=== PATIENT | male | born 1990 | race Caucasian/White ===

== ENCOUNTER 2020-02-08 11:05 | Outpatient (NON) | payer OTHER, SELFPAY ==
[2020-02-10 01:50] LABS: SARS-CoV-2 RNA PCR Negative
== END 2020-02-08 11:06 ==
LOC: ANHCOVIDDT 11:08
PROVIDERS: PCP Internal Medicine; Visit Provider Internal Medicine
DX: Z20.828 Contact with and (suspected) exposure to other viral communicable diseases (principal); J06.9 Acute upper respiratory infection, unspecified
CPT/HCPCS: 87635; C9803; U0003

== ENCOUNTER → 2020-04-14 10:28 | Outpatient (CLI) | payer OTHER, SELFPAY ==
--- NOTE | ~2020-04-14 | MR_ITS ---
EXAMINATION: MR lumbar spine wo con DATE: 04/14/2020 11:01 INDICATION: Low back pain. Right-sided sciatica. TECHNIQUE: Magnetic resonance imaging (MRI) of the lumbar spine was performed without intravenous con trast. Sequences included sagittal T2-weighted FSE, sagittal T2-weighted FS FSE, sagittal T1-weighted FSE, and axial T2-weighted FSE. COMPARISON: None FINDINGS: Bone alignment is normal. Vertebral body heights are normal. There is mildly decreased disc height at L4-L5 and moderately decreased disc height at L5-S1. The distal spinal cord signal intensi ty is normal. The conus medullaris is at L1. 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 The following disc levels are specifically discussed: L1-L2: The disc does not extend beyond the endplate margin. There is mild left facet joint osteoarthr itis. There is no neural foraminal stenosis. There is no central canal stenosis. L2-L3: The disc does not extend beyond the endplate margin. There is mild right facet joint osteoarth ritis. There is no neural foraminal stenosis. There is no central canal stenosis. L3-L4: The disc does not extend beyond the endplate margin. There is mild right facet joint osteoarth ritis. There is no neural foraminal stenosis. There is no central canal stenosis. L4-L5: The disc is bulging with superimposed central extrusion. There is mild bilateral facet joint o steoarthritis. There is no neural foraminal stenosis. There is mild central canal stenosis. L5-S1: The disc is bulging with superimposed right central extrusion with mass effect on right S1 ner ve root in right lateral recess. There is mild bilateral facet joint osteoarthritis. There is mild bi lateral neural foraminal stenosis. There is mild central canal stenosis. IMPRESSION: 1. Moderate lower lumbar spondylosis. Of note, an extrusion at L5-S1 exerts mass effect on right S1 n erve root. Reviewed, dictated and finalized at location B. LANE TUBE BUILDER IMPRESSION: 1. Moderate lower lumbar spondylosis. Of note, an extrusion at L5-S1 exerts mas s effect on right S1 nerve root.
== END ==
PROVIDERS: PCP Internal Medicine; Visit Provider Internal Medicine
DX: M54.41 Lumbago with sciatica, right side (principal); M47.896 Other spondylosis, lumbar region; M51.27 Other intervertebral disc displacement, lumbosacral region
CPT/HCPCS: 72148

== ENCOUNTER 2020-06-11 08:00 | Outpatient (RCR) | payer OTHER, SELFPAY ==
--- NOTE | 2020-04-11 12:54 | PTOPEVAL ---
INITIAL PHYSICAL THERAPY EVALUATION and PLAN OF CARE Thank you for referring Krishna Guzman to [facility].? Krishna is scheduled to be seen for physical therapy? 2x/week for 4 weeks. Please review, sign, date and return this plan of care JÚNIOR. I agree with and certify that the following plan of care is medically necessary. Referring Physician Date Admitting Provider: Attending Provider: Rikki Ruiz, Referring Provider: *PT Outpatient Evaluation Start: 04/11/20 08:05 Freq: Status: Active Protocol: Document 04/11/20 08:06 FLORENTINO (Rec: 04/11/20 09:08 FLORENTINO [id number]) Therapy Assessment Status Assessment Status Assessment Status Evaluation Outpatient Past Medical History Past Medical History Source of Past Medical History Patient Musculoskeletal History Hx Orthopedic Surgery Yes: L knee meniscus repair, then revision Nov 2019 Evaluation Information Problem Diagnosis low back pain Onset January 2020 Subjective Information Lifting boxes repetitively at Query Text:As Reported By Patient/ work - watching how much Family weight he was putting on L leg due to recent L knee surgery - felt discomfort with R lower back - increased pain occurred Increased discomfort R sided low back remains - pain will shoot down R posterior leg to knee and on occasions will go all the way down to the R foot. Sleeping - taking muscle relaxers to sleep or either drinking alcohol to help fall asleep. Does some stretching in bed - then another set when he gets up Worse as the day goes on especially if at work, if too much pain will stay home. Difficulty with walking dog - larger dog will pull. 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
--- NOTE | 2020-05-07 15:23 | PTOPEVAL ---
PHYSICAL THERAPY RE-EVALUATION and UPDATED PLAN OF CARE Thank you for referring Krishna Guzman to [facility].? Krishna has made gains in PT, but there has not been full resolution of R radicular LE pain/symptoms. Krishna is scheduled to be seen for physical therapy? 2x/week for 4 weeks. Please review, sign, date and return this plan of care JÚNIOR. I agree with and certify that the following plan of care is medically necessary. Referring Physician Date Admitting Provider: Attending Provider: Rikki Ruiz, MD Referring Provider: Therapy Assessment Status Assessment Status Assessment Status Re-evaluation Evaluation Information Problem Diagnosis low back pain Subjective Information Krishna reports increase in Query Text:As Reported By Patient/ discomfort last few days - Family increase in flexion activities past few days at work. Didn' t sleep well past few days. Krishna reports that he does gain relief with PT - especially the mobilization to back structures - always feels better afterwards. Continues to perform his HEP. Pain Assessment Self Report Pain Assessment Lower Back Reported Pain Level 5 Pain Description Sharp Radicular Pain Location to R distal buttock region Lowest Pain Intensity 3 Greatest Pain Intensity 8 Cervical and Lumbar ROM Lumbar ROM Lumbar Flexion (0-90) 40 Query Text:Active in Degrees Lumbar Extension (0-40) 10 Query Text:Active in Degrees Lumbar Lateral Flexion Right (0-40) 20 Query Text:Active in Degrees Lumbar Lateral Flexion Left (0-40) 20 Query Text:Active in Degrees Lumbar Comments discomfort limited trunk flexion and extension Palpation Assessment Palpation Palpation Tenderness with lumbar paraspinal muscles today - bilat L3-5 Tenderness with P -A mob at sacral base, L5 Decrease mobility at L5, improved L4,3 Able to promote increased sacral and L5 mobility with manual therapy - decreased discomfort afterwards. PT Clinical Summary Clinical Summary Protocol: PTEVCODE PT Clinical Summary Modified Oswestry LBP Questionnaire 62% Krishna has done well in PT - R radicular symptoms have centrali
--- NOTE | 2020-05-12 08:37 | PCPTNOTE ---
Patient did not show up for scheduled appointment this date. Phone call made - message left. Let him know when his next appointment is 05/16/20 at 8:00.
--- NOTE | 2020-06-02 08:10 | PCPTNOTE ---
Patient called & cancelled scheduled appointment this date due to car problems.
--- NOTE | 2020-06-09 08:42 | PCPTNOTE ---
Patient did not show up for scheduled appointment this date. Phone call made - Krishna messed up his days - he is being rescheduled 06/11/20 for re-eval.
--- NOTE | 2020-06-11 14:12 | PTOPEVAL ---
PHYSICAL THERAPY DISCHARGE SUMMARY Thank you for referring Krishna Guzman to [facility].? Krishna has been seen x 15 visits. He has made progress towards goals set. Generally discomfort is in R lower back and buttock region, but he can still provoke radicular symptoms down to R heel. He is independent and compliant with HEP, which he is to continue with. He is at end point with PT at this time. I agree with Krishna's discharge from PT. Referring Physician Date Admitting Provider: Attending Provider: Rikki Ruiz, MD Referring Provider: Therapy Assessment Status Assessment Status Assessment Status Discharge Evaluation Information Problem Diagnosis low back pain Onset January 2020 Subjective Information Krishna reports that he can Query Text:As Reported By Patient/ still produce R leg pain Family radiating to heel with full press up at times. Generally pain is in 3-5/10 levels and discomfort felt in R lower back and buttock level. Getting on ball 2-3 times/day for exercises - helps decrease discomfort. Mid back discomfort is improved - but still present more as the day goes on. Pain Assessment Self Report Pain Assessment Lower Back Reported Pain Level 4 Pain Description Dull,Sharp Lowest Pain Intensity 1 Greatest Pain Intensity 9 Cervical and Lumbar ROM Lumbar ROM Lumbar Flexion (0-90) 35 Query Text:Active in Degrees Lumbar Extension (0-40) 10 Query Text:Active in Degrees Lumbar Lateral Flexion Right (0-40) 15 Query Text:Active in Degrees Lumbar Lateral Flexion Left (0-40) 10 Query Text:Active in Degrees Lumbar Comments discomfort with trunk motion in standing after mobilization to back - full press up motion in prone Muscle Length Testing Muscle Length Testing Left Hamstring Length -30 Query Text:(90 - 90 Position) Right Hamstring Length -22 Query Text:(90 - 90 Position) Palpation Assessment Palpation Palpation P-A mob - tenderness at sacral base and L DEQUAN, decreased mobility at L5 with tenderness , normal mobility at L4,3 - decreased discomfort Symmetrical thoracic alignment and mobility now present PT Clinical Summary Clinical Summary Protocol: PTEVCODE PT Cli
== END 2020-06-24 10:53 | disposition home or self-care (01) ==
LOC: ANHHIPT 08:00
PROVIDERS: PCP Internal Medicine; Visit Provider Internal Medicine
DX: M54.5 Low back pain (principal)
CPT/HCPCS: 97110; 97140; 97162

== ENCOUNTER 2022-03-30 08:47 | Outpatient (CLI) | payer OTHER, SELFPAY ==
--- NOTE | 2022-03-30 | ECG_ITS ---
Measurements Intervals [place] Rate: 68 P: 74 GA: 162 QRS: 81 QRSD: 92 T: 74 QT: 399 QTc: 427 Interpretive Statements SINUS RHYTHM WITH MARKED SINUS ARRHYTHMIA MINIMAL Q WAVES- INFERIOR LEADS BORDERLINE ECG NO PREVIOUS ECG AVAILABLE FOR COMPARISON Electronically Signed On 03-30-2022 9:39:01 LEAD GENERATOR by Remy Barry D.O.
--- NOTE | ~2022-03-30 | XR_ITS ---
Clinical Indication: Radiculopathy PA and lateral views of the chest: Comparison: None Findings: The lungs are clear, without evidence of focal consolidation or pleural effusion. Cardiome diastinal silhouette is within normal limits. Bones and soft tissues are unremarkable. Impression: Normal chest. Reviewed, dictated and finalized at [facility]. NT CARE MANAGER Impression: Normal chest.
[2022-03-30 09:17] LABS: Basophils Percent Auto 0.7 % (0.2-1.2); Eosinophils Absolute Auto 0.2 K/mm3 (0-0.3); Eosinophils Percent Auto 2.8 % (0-4.4); Hematocrit 41.8 % (42.0-52.0); Hemoglobin 14.8 g/dL (14.0-18.0); Immature Granulocyte Absolute 0.01 K/mm3 (0.00-0.031); Immature Granulocyte Percent A 0.2 % (0-0.5); Lymphocytes Absolute Auto 2.04 K/mm3 (0.9-3.2); Lymphocytes Percent Auto 33.3 % (18.3-44.2); Mean Corpuscular HGB Conc 35.4 g/dl (32-36); Mean Corpuscular Hemoglobin 30.8 pg (26-34); Mean Corpuscular Volume 87.1 fl (80-100); Mean Platelet Volume 9.4 fl (7.4-10.4); Monocytes Absolute Auto 0.7 K/mm3 (0.1-0.6); Monocytes Percent Auto 11.4 % (2.6-8.5); Neutrophils Absolute Auto 3.2 K/mm3 (1.3-6.7); Neutrophils Percent Auto 51.6 % (45.5-73.1); Platelet Count Result 200 k/mm3 (150-375); White Blood Count 6.1 K/mm3 (4.5-10.0)
[2022-03-30 09:33] LABS: Alanine Aminotransferase 44 U/L (6-50); Albumin Level 4.4 g/dL (3.5-5.1); Alkaline Phosphatase 53 U/L (38-126); Anion Gap 6 mmol/L (8-16); Aspartate Amino Transferase 29 U/L (17-59); Bilirubin,Total 1.3 mg/dL (0.2-1.3); Blood Urea Nitrogen 14 mg/dL (9-20); Carbon Dioxide 32 mmol/L (22-30); Chloride 103 mmol/L (98-107); Estimated Glomerular Filt Rate > 60; Glucose 125 mg/dL (65-110); Potassium 3.8 mmol/L (3.4-5.0); Sodium 141 mmol/L (137-145)
[2022-03-30 09:37] LABS: Prealbumin 34.7 mg/dL (17.6-36.0)
[2022-03-30 09:44] LABS: INR 1.1; Prothrombin Time 13.6 Seconds (11.1-14.7)
[2022-03-30 10:12] LABS: HIV 1/2 Ab P24 Ag Result Negative (Negative)
[2022-03-30 10:20] LABS: Vitamin D 25 Hydroxy 22.7 ng/mL
[2022-03-30 10:33] LABS: Hepatitis B Surface Antigen Negative (Negative)
[2022-03-30 10:39] LABS: HAV RESULT Negative (Negative); Hepatitis B Core IgM Result Negative (Negative)
[2022-03-30 10:50] LABS: Hepatitis C Virus Antibody Negative (Negative)
[2022-04-02 12:49] LABS: Testosterone Total 398 ng/dL (250-1100)
== END 2022-03-30 08:48 | disposition home or self-care (01) ==
PROVIDERS: PCP Internal Medicine; Visit Provider Orthopaedic Surgery
DX: M54.16 Radiculopathy, lumbar region (principal); R94.31 Abnormal electrocardiogram [ECG] [EKG]
CPT/HCPCS: 36415; 71046; 80053; 80074; 82306; 84134; 84403; 84443; 85025; 85610; 85730; 86703; 93005; G0432

== ENCOUNTER 2022-03-31 11:49 | Outpatient (CLI) | payer OTHER, SELFPAY ==
--- NOTE | 2022-03-31 | ECG_ITS ---
Measurements Intervals [place] Rate: 61 P: 66 CT: 150 QRS: 76 QRSD: 97 T: 68 QT: 393 QTc: 398 Interpretive Statements SINUS RHYTHM WITH MARKED SINUS ARRHYTHMIA MINIMAL Q WAVES- INFERIOR LEADS BORDERLINE ECG COMPARED TO ECG 03/30/2022 09:23:45 NO SIGNIFICANT CHANGES Electronically Signed On 03-31-2022 12:39:37 HYDROELECTRIC SYSTEMS TECHNICIAN by Remy Barry D.O.
== END 2022-03-31 11:50 | disposition home or self-care (01) ==
PROVIDERS: PCP Internal Medicine; Visit Provider Orthopaedic Surgery
DX: Z01.810 Encounter for preprocedural cardiovascular examination (principal)
CPT/HCPCS: 93005

== ENCOUNTER 2022-05-12 14:09 | Outpatient (CLI) | payer OTHER, SELFPAY ==
[2022-05-12 14:30] LABS: Basophils Percent Auto 0.5 % (0.2-1.2); Eosinophils Absolute Auto 0.1 K/mm3 (0-0.3); Hematocrit 45.5 % (42.0-52.0); Hemoglobin 15.9 g/dL (14.0-18.0); Immature Granulocyte Absolute 0.01 K/mm3 (0.00-0.031); Immature Granulocyte Percent A 0.2 % (0-0.5); Lymphocytes Absolute Auto 1.57 K/mm3 (0.9-3.2); Lymphocytes Percent Auto 24.7 % (18.3-44.2); Mean Corpuscular HGB Conc 34.9 g/dl (32-36); Mean Corpuscular Hemoglobin 30.8 pg (26-34); Mean Platelet Volume 9.5 fl (7.4-10.4); Monocytes Absolute Auto 0.5 K/mm3 (0.1-0.6); Monocytes Percent Auto 7.2 % (2.6-8.5); Neutrophils Absolute Auto 4.2 K/mm3 (1.3-6.7); Neutrophils Percent Auto 65.4 % (45.5-73.1); Platelet Count Result 208 k/mm3 (150-375); Red Blood Count 5.17 M/mm3 (4.6-6.20); White Blood Count 6.4 K/mm3 (4.5-10.0)
[2022-05-12 14:39] LABS: Alanine Aminotransferase 44 U/L (6-50); Albumin Level 4.8 g/dL (3.5-5.1); Alkaline Phosphatase 51 U/L (38-126); Anion Gap 8 mmol/L (8-16); Aspartate Amino Transferase 29 U/L (17-59); Bilirubin,Total 1.4 mg/dL (0.2-1.3); Blood Urea Nitrogen 16 mg/dL (9-20); Calcium 9.4 mg/dL (8.4-10.2); Carbon Dioxide 30 mmol/L (22-30); Chloride 102 mmol/L (98-107); Estimated Glomerular Filt Rate > 60; Glucose 134 mg/dL (65-110); Potassium 3.9 mmol/L (3.4-5.0); Sodium 140 mmol/L (137-145)
[2022-05-12 14:45] LABS: INR 1.1; Prothrombin Time 13.7 Seconds (11.1-14.7)
== END 2022-05-12 14:10 | disposition home or self-care (01) ==
PROVIDERS: PCP Nurse Practitioner Family; Visit Provider Orthopaedic Surgery
DX: M54.16 Radiculopathy, lumbar region (principal)
CPT/HCPCS: 36415; 80053; 85025; 85610; 85730

== ENCOUNTER 2023-08-29 08:24 | Day surgery (SDC) | payer OTHER, SELFPAY ==
[2023-08-10 06:06] VITALS: BMI 25.8
[2023-08-11 11:24] VITALS: BMI 25.8
--- NOTE | 2023-08-23 10:09 | P.HP_ITS ---
History of Present Illness History of Present Illness Consent: Risks, benefits, and alternatives have been discussed and questions answered. Patient agrees to proceed with procedure. Chief complaint: Change in bowel habit Narrative: Krishna Guzman is a 33 year old male with a change of bowel habits. He has several stools per day which tend to be soft or loose. He often feels as though he is not empty Review of Systems Review of Systems: All systems reviewed & are unremarkable except as noted in HPI and below PMFSH Past Medical History Medical History IBS (irritable bowel syndrome) Surgical History Surgical History H/O knee surgery left knee, 2019 and 2019 S/P spinal surgery Family History Family History Father Hypertension Grandparent Diabetes mellitus Hypertension Heart disease Social History Social History Smoking status: Never smoker Alcohol intake: current Alcohol use details: wine, beer, spirits; every 2 weeks Substance use: current Substance use type: marijuana Living arrangements: with roommate(s) Occupation/Education: occupation Additional occupation/education comments: 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 Gender identity (if verbalized by the patient): Male Spiritual care concerns: No Agree to blood products: Yes Meds Home Medications and Allergies Home Medications Medication Instructions Recorded Confirmed Type cyclobenzaprine 10 mg tablet 10 mg PO TID PRN Pain, Moderate 09/29/22 08/29/23 History pregabalin 75 mg capsule (Lyrica) 150 mg PO DAILY 06/22/23 08/29/23 History Allergies Allergy/AdvReac Type Severity Reaction Status Date / Time No Known Allergies Allergy Verified 08/29/23 09:55 Exam Resp: Auscultation: clear to auscultation bilaterally Cardio: Rate: regular rate Rhythm: regular rhythm GI: GI Palp: Yes Soft to palpation and No Tenderness to palpation present (GI) Assessment and Plan Assessment and plan (1) Change in bowel habits: Code(s): R19.4 - Change in bowel habit Status: Acute Assessment and Plan: Colonoscopy with possible biopsy or polypectomy or cautery or injection of substances.
[2023-08-29 09:57] VITALS: BP 112/90; PULSE 76; RESP 18; TEMP 37.4; O2SAT 100
[2023-08-29] MEDS: LACTATED RINGERS 1,000 ML 150 ML IV CONT (10:00)
--- NOTE | 2023-08-29 10:37 | WPDANESEPPF ---
Anes - Initial Pre Proc Eval Procedure: Operation Date: 08/29/23 11:00 Proposed Procedures p Diagnostic Colonoscopy - Marcus Orellana MD Date/Time: 08/29/23 10:37 Surgeon: Marcus Orellana MD Pre Op Diagnosis: Change in bowel habit Patient Data Age: 33 Gender: M Height: 1.8 m Weight: 82.4 kg Last Vital Signs Temp 37.4 C 08/29/23 09:57 Pulse 76 08/29/23 09:57 Resp 18 08/29/23 09:57 BP 112/90 08/29/23 09:57 Pulse Ox 100 08/29/23 09:57 O2 Del Method Room Air 08/29/23 09:57 Allergies Allergy/AdvReac Type Severity Reaction Status Date / Time No Known Allergies Allergy Verified 08/29/23 09:55 Home Medications Medication Instructions Recorded Confirmed Type cyclobenzaprine 10 mg tablet 10 mg PO TID PRN Pain, Moderate 09/29/22 08/29/23 History pregabalin 75 mg capsule (Lyrica) 150 mg PO DAILY 06/22/23 08/29/23 History Patient hx anesthesia problems: none Family hx anesthesia problems: none Results Review: All pre-operative results and documents have been reviewed as part of the pre-operative evaluation. [facility] Past Medical History Medical History IBS (irritable bowel syndrome) Surgical History Surgical History H/O knee surgery left knee, 2019 and 2019 S/P spinal surgery Family History Family History Father Hypertension Grandparent Diabetes mellitus Hypertension Heart disease Social History Social History Smoking status: Never smoker Alcohol intake: current Alcohol use details: wine, beer, spirits; every 2 weeks Substance use: current Substance use type: marijuana Living arrangements: with roommate(s) Occupation/Education: occupation Additional occupation/education comments: 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 Gender identity (if verbalized by the patient): Male Spiritual care concerns: No Agree to blood products: Yes Anes - Eval Final PreProcedure Day of Procedure 08/29/23 10:37 Patient weight: normal Heart: regular rate and rhythm Lungs: clear to auscultation Airway: Mallampati scale class II Neurological: alert and oriented Last oral intake: >/= 8 hours ASA classification: I Emergent: no Anesthetic plan: proceed Anesthesia type and monitoring: general GIVS and standard monitoring Results Review: All pre-operative results and documents have been reviewed as part of the pre-operative evaluation. Informed Consent: The patient's anesthetic plan and its attendant risks and benefits were discussed with the patient/family/POA. Questions were solicited and answers provided to the satisfaction of the patient/family/POA.
[2023-08-29 11:29] VITALS: BP 99/71; PULSE 65; RESP 16; O2SAT 98
[2023-08-29 11:39] VITALS: BP 119/74; PULSE 68; RESP 15; O2SAT 100
--- NOTE | 2023-08-29 11:44 | WPDANESPN ---
Anes - Prog Note Post-Op Date/Time: 08/29/23 11:44 Cardiovascular status: normal Respiratory status: normal Airway patency: baseline Mental status: baseline Post-Op hydration status: normal Vital Signs: Last Vital Signs Temp 37.4 C 08/29/23 09:57 Pulse 68 08/29/23 11:39 Resp 15 08/29/23 11:39 BP 119/74 08/29/23 11:39 Pulse Ox 100 08/29/23 11:39 O2 Del Method Room Air 08/29/23 11:39 Pain Score (VAS): 0/10 I/O: Intake & Output 08/28/23 08/29/23 08/29/23 23:59 07:59 15:59 Intake Total 300 Balance 300 Patient Feedback: Patient satisfied with anesthetic care.
[2023-08-29 11:49] VITALS: BP 108/76; PULSE 72; RESP 15; O2SAT 99
== END 2023-08-29 12:05 | disposition home or self-care (01) ==
PROVIDERS: PCP Nurse Practitioner Family; Visit Provider Internal Medicine Gastroenterology
PROC: 0DJD8ZZ Inspection of Lower Intestinal Tract, Via Natural or Artificial Opening Endoscopic (ICD-10-PCS; CPT 45378; principal; 2023-08-29 11:00)
DX: R19.4 Change in bowel habit (principal); D12.5 Benign neoplasm of sigmoid colon; K64.8 Other hemorrhoids
CPT/HCPCS: 45380

== ENCOUNTER 2023-08-29 11:15 | Outpatient (NON) | payer OTHER, SELFPAY | END 2023-08-29 11:16 | disposition home or self-care (01) | LOC: ANHLAB 08-30 11:17 | PROVIDERS: PCP Nurse Practitioner Family; Visit Provider Internal Medicine Gastroenterology | DX: R19.4 Change in bowel habit (principal); K63.5 Polyp of colon | CPT/HCPCS: 88305 ==

== ENCOUNTER 2024-02-21 13:37 | Emergency (ER) | payer OTHER, SELFPAY ==
[2024-02-21 13:41] VITALS: BP 150/112; PULSE 114; RESP 19; TEMP 37; O2SAT 100
--- NOTE | 2024-02-21 15:18 | PC.NURSE ---
patient presents to desk stating he is unable to wait. advised to come back to ER if needed evaluated.
== END 2024-02-21 15:32 | disposition left against medical advice (07) ==
LOC: ANHED 15:23
PROVIDERS: PCP Nurse Practitioner Family
DX: R42 Dizziness and giddiness (principal)
CPT/HCPCS: 99199